=== PATIENT | female | born 1995 | race Caucasian/White ===

== ENCOUNTER 2020-03-05 09:35 | Outpatient (CLI) | payer OTHER, SELFPAY ==
[2020-03-06 13:17] LABS: SARS-CoV-2 RNA PCR Negative
== END 2020-03-05 09:36 | disposition home or self-care (01) ==
PROVIDERS: PCP Family Medicine
DX: J06.9 Acute upper respiratory infection, unspecified (principal); Z20.828 Contact with and (suspected) exposure to other viral communicable diseases
CPT/HCPCS: 87635; C9803; U0003